=== PATIENT | male | born 1955 | race Caucasian/White ===

== ENCOUNTER 2020-04-01 02:09 | Emergency (ER) | payer OTHER ==
[2020-04-01 03:22] LABS: HEMOGLOBIN 12.5 gm/dl (14.0-17.5); RED BLOOD COUNT 4.59 M/UL (4.20-5.50); WHITE BLOOD COUNT 6.3 K/UL (4.5-11.0)
[2020-04-01] MEDS ORDERED: COLACE 100MG C100 MG PO (05:09)
== END 2020-04-01 04:45 | disposition home or self-care (01) ==
LOC: ER1 02:09
PROVIDERS: Emergency Medicine
DX: K59.00 Constipation, unspecified (principal); R39.198 Other difficulties with micturition; R31.9 Hematuria, unspecified; I10 Essential (primary) hypertension; E11.9 Type 2 diabetes mellitus without complications; Z85.528 Personal history of other malignant neoplasm of kidney; Z85.850 Personal history of malignant neoplasm of thyroid
CPT/HCPCS: 71045; 80053; 81001; 83605; 83690; 84484; 85025; 85610; 85730; 93005; 99284